=== PATIENT | male | born 1955 | race Caucasian/White ===

== ENCOUNTER 2018-07-07 17:01 | Observation (INO) | payer MEDICARE, OTHER ==
[~2018-07-07] VITALS: Ht 167.6 cm; Wt 55.7 kg
[~2018-07-07 17:01] MED LIST: ATOR; ATOR40TA78 PO; ATORVASTATIN; CARV; CARV12.5 PO; CARVEDILOL; CLOP75TA PO; CLOPIDOGREL; FLUO40CA2 PO; GLIM2TAB2 PO; HYDR25CA PO; LISI-170 PO; LISINOPRIL; METF850T10 PO; METFORM; OLAN5TAB7 PO; OLANZAPINE; PROZAC; [UNRECOGNIZED DRUG - OTHER]
[2018-07-07] MEDS ORDERED: GLUCAGON 1 MG IM PRN (17:30)
[2018-07-07] MEDS ORDERED: ONDANSETRON ODT 4 MG PO PRN (17:30)
[2018-07-07] MEDS ORDERED: DEXTROSE 50%, 50ML SYRINGE IVPush PRN (17:30)
[2018-07-07] MEDS ORDERED: DEXTROSE 4 GM TAB.CHEW PO PRN (17:30)
[2018-07-07] MEDS ORDERED: ONDANSETRON 2MG/ML, 2ML IVPush PRN (17:30)
[2018-07-07] MEDS ORDERED: LABETALOL 5MG/ML, 20ML IVPush PRN (17:30)
[2018-07-07] MEDS ORDERED: DAPTOMYCIN 425 MG in SODIUM CHLORIDE 0.9% 100 ML IVPB SCH (18:00)
[2018-07-07] MEDS ORDERED: HYDROXYZINE PAMOATE 25MG CAP PO PRN (18:00)
[2018-07-07 18:44] VITALS: BP 112/56
[2018-07-07] MEDS ORDERED: DAPTOMYCIN 320 MG in SODIUM CHLORIDE 0.9% 100 ML IVPB SCH (20:00)
[2018-07-07] MEDS: ENOXAPARIN 40 MG/0.4 ML SQ SCH (20:15)
[2018-07-07] MEDS: SODIUM CHLORIDE FLUSH 10ML SYR IVF SCH (20:16)
[2018-07-07] MEDS ORDERED: INSULIN GLARGINE 100 UNITS/ML, PEN SQ-INSULIN SCH (21:00)
[2018-07-07 22:23] LABS: BASOPHILS # (AUTO) 0.12 x10^3/uL (0-0.1); BASOPHILS % (AUTO) 2 % (0-1); EOSINOPHILS # (AUTO) 0.21 x10^3/uL (0-0.4); EOSINOPHILS % (AUTO) 3 % (1-7); LYMPHOCYTES # (AUTO) 1.95 x10^3/uL (1-3.4); LYMPHOCYTES % (AUTO) 23 % (22-44); MD NO; MEAN CORPUSCULAR HEMOGLOBIN 31.1 pg (27.5-34.5); MEAN CORPUSCULAR HGB CONC 34.2 g/dL (33.2-36.2); MEAN CORPUSCULAR VOLUME 90.9 fL (81-97); MEAN PLATELET VOLUME 7.9 fL (7.4-10.4); MONOCYTES # (AUTO) 0.71 x10^3/uL (0.2-0.8); MONOCYTES % (AUTO) 8 % (2-9); NEUTROPHILS # (AUTO) 5.51 x10^3/uL (1.8-6.8); NEUTROPHILS % (AUTO) 65 % (42-75); PLATELET COUNT 428 x10^3/uL (130-400); RED BLOOD COUNT 3.03 x10^6/uL (4.38-5.82); RED CELL DISTRIBUTION WIDTH 16.2 % (9.4-14.8)
[2018-07-07 22:35] LABS: ALANINE AMINOTRANSFERASE 20 U/L (12-78); ALBUMIN 2.7 g/dL (3.4-5.0); ANION GAP 8 mmol/L (5-15); CALCIUM 8.6 mg/dL (8.5-10.1); CHLORIDE 104 mmol/L (98-107); CREATININE 1.35 mg/dL (0.7-1.3)
[2018-07-07] MEDS: INSULIN LISPRO 100 UNITS/ML, PEN SQ-INSULIN SCH (22:35)
[2018-07-07 22:38] LABS: ALKALINE PHOSPHATASE 85 U/L (45-117); FREE T4 (FREE THYROXINE) 0.62 ng/dL (0.76-1.46); TOTAL PROTEIN 7.3 g/dL (6.4-8.2)
[2018-07-07 22:39] LABS: BILIRUBIN,TOTAL < 0.1 mg/dL (0.2-1.0)
[2018-07-07 23:14] LABS: AMPHETAMINE SCREEN, URINE Negative (Negative); BARBITURATE SCREEN, URINE Negative (Negative); BENZODIAZEPINE SCREEN, URINE Negative (Negative); CANNABINOID SCREEN, URINE Negative (Negative); OPIATE SCREEN, URINE Negative (Negative)
[2018-07-07 23:15] LABS: COCAINE SCREEN, URINE Negative (Negative); METHADONE SCREEN, URINE Negative (Negative)
[2018-07-08 01:11] VITALS: BP 102/54
[2018-07-08 05:21] LABS: ALKALINE PHOSPHATASE 74 U/L (45-117); BILIRUBIN,TOTAL 0.2 mg/dL (0.2-1.0); TOTAL PROTEIN 7.2 g/dL (6.4-8.2)
[2018-07-08 05:36] LABS: ALANINE AMINOTRANSFERASE 19 U/L (12-78); ALBUMIN 2.9 g/dL (3.4-5.0); ANION GAP 10 mmol/L (5-15); CALCIUM 8.6 mg/dL (8.5-10.1); CHLORIDE 107 mmol/L (98-107); CREATININE 1.11 mg/dL (0.7-1.3)
[2018-07-08] MEDS: CARVEDILOL 12.5 MG TABLET PO SCH ×2 (05:52→18:00)
[2018-07-08 06:20] LABS: BASOPHILS # (AUTO) 0.09 x10^3/uL (0-0.1); BASOPHILS % (AUTO) 1 % (0-1); EOSINOPHILS % (AUTO) 3 % (1-7); LYMPHOCYTES # (AUTO) 1.71 x10^3/uL (1-3.4); LYMPHOCYTES % (AUTO) 25 % (22-44); MD NO; MEAN CORPUSCULAR HEMOGLOBIN 30.1 pg (27.5-34.5); MEAN CORPUSCULAR VOLUME 91.2 fL (81-97); MEAN PLATELET VOLUME 8.2 fL (7.4-10.4); MONOCYTES # (AUTO) 0.56 x10^3/uL (0.2-0.8); MONOCYTES % (AUTO) 8 % (2-9); NEUTROPHILS # (AUTO) 4.33 x10^3/uL (1.8-6.8); NEUTROPHILS % (AUTO) 63 % (42-75); PLATELET COUNT 460 x10^3/uL (130-400); RED CELL DISTRIBUTION WIDTH 15.9 % (9.4-14.8)
[2018-07-08] MEDS: INSULIN LISPRO 100 UNITS/ML, PEN SQ-INSULIN SCH ×4 (07:00→21:00)
[2018-07-08] MEDS ORDERED: MAGNESIUM SULFATE PMX 2GM/50ML 50 ML IV ONE (07:30)
[2018-07-08 08:54] VITALS: BP 103/59
[2018-07-08] MEDS ORDERED: INSULIN GLARGINE 100 UNITS/ML, PEN SQ-INSULIN SCH (09:00)
[2018-07-08] MEDS: SENNA/DOCUSATE TABLET PO SCH (09:00)
[2018-07-08] MEDS: FLUOXETINE HCL 20 MG CAPSULE PO SCH (10:30)
[2018-07-08] MEDS: ATORVASTATIN 40 MG TABLET PO SCH (10:30)
[2018-07-08] MEDS: CLOPIDOGREL 75 MG TABLET PO SCH (10:31)
[2018-07-08] MEDS: SODIUM CHLORIDE FLUSH 10ML SYR IVF SCH ×2 (10:39→22:12)
[2018-07-08] MEDS: metFORMIN 850 MG TABLET PO SCH ×2 (10:51→17:00)
[2018-07-08] MEDS: LISINOPRIL 20 MG TABLET PO SCH (10:52)
[2018-07-08 12:21] LABS: HEMOGLOBIN A1C 12.7 % (4.2-6.3)
[2018-07-08 15:23] VITALS: BP 112/60
[2018-07-08 18:34] VITALS: BP 87/44
[2018-07-08] MEDS: ENOXAPARIN 40 MG/0.4 ML SQ SCH (20:54)
[2018-07-08] MEDS ORDERED: DAPTOMYCIN 320 MG in SODIUM CHLORIDE 0.9% 100 ML IVPB SCH (23:00)
[2018-07-09 02:12] VITALS: BP 105/55
[2018-07-09 05:03] LABS: HCT (SEDRATE) 27.7 % (39.2-51.8)
[2018-07-09 05:09] LABS: BASOPHILS # (AUTO) 0.11 x10^3/uL (0-0.1); BASOPHILS % (AUTO) 2 % (0-1); EOSINOPHILS # (AUTO) 0.23 x10^3/uL (0-0.4); EOSINOPHILS % (AUTO) 4 % (1-7); LYMPHOCYTES # (AUTO) 1.69 x10^3/uL (1-3.4); LYMPHOCYTES % (AUTO) 29 % (22-44); MD NO; MEAN CORPUSCULAR HEMOGLOBIN 31.6 pg (27.5-34.5); MEAN CORPUSCULAR HGB CONC 34.5 g/dL (33.2-36.2); MEAN CORPUSCULAR VOLUME 91.7 fL (81-97); MONOCYTES % (AUTO) 10 % (2-9); NEUTROPHILS # (AUTO) 3.25 x10^3/uL (1.8-6.8); NEUTROPHILS % (AUTO) 55 % (42-75); PLATELET COUNT 404 x10^3/uL (130-400); RED BLOOD COUNT 3.04 x10^6/uL (4.38-5.82); RED CELL DISTRIBUTION WIDTH 16.1 % (9.4-14.8)
[2018-07-09 05:11] LABS: ALANINE AMINOTRANSFERASE 18 U/L (12-78); ALBUMIN 2.5 g/dL (3.4-5.0); ANION GAP 7 mmol/L (5-15); CALCIUM 8.8 mg/dL (8.5-10.1); CHLORIDE 107 mmol/L (98-107); CREATININE 1.27 mg/dL (0.7-1.3)
[2018-07-09 05:18] LABS: ALKALINE PHOSPHATASE 76 U/L (45-117); BILIRUBIN,TOTAL 0.2 mg/dL (0.2-1.0); CREATINE KINASE, TOTAL 45 U/L (39-308); TOTAL PROTEIN 6.7 g/dL (6.4-8.2)
[2018-07-09] MEDS: CARVEDILOL 12.5 MG TABLET PO SCH ×2 (06:00→18:00)
[2018-07-09 06:55] VITALS: BP 83/40
[2018-07-09] MEDS: INSULIN LISPRO 100 UNITS/ML, PEN SQ-INSULIN SCH ×4 (07:00→21:21)
[2018-07-09] MEDS: metFORMIN 850 MG TABLET PO SCH ×2 (07:57→17:01)
[2018-07-09] MEDS: SENNA/DOCUSATE TABLET PO SCH (09:00)
[2018-07-09] MEDS: LISINOPRIL 20 MG TABLET PO SCH (09:00)
[2018-07-09] MEDS: FLUOXETINE HCL 20 MG CAPSULE PO SCH (09:18)
[2018-07-09] MEDS: CLOPIDOGREL 75 MG TABLET PO SCH (09:19)
[2018-07-09] MEDS: SODIUM CHLORIDE FLUSH 10ML SYR IVF SCH ×2 (09:19→20:58)
[2018-07-09] MEDS: ATORVASTATIN 40 MG TABLET PO SCH (09:19)
[2018-07-09 09:20] VITALS: BP 107/47
[2018-07-09 13:15] VITALS: BP 103/50
[2018-07-09 18:21] VITALS: BP 107/50
[2018-07-09 20:27] VITALS: BP 113/58
[2018-07-09] MEDS: ENOXAPARIN 40 MG/0.4 ML SQ SCH (21:01)
[2018-07-09] MEDS ORDERED: DAPTOMYCIN 350 MG in SODIUM CHLORIDE 0.9% 100 ML IVPB SCH (23:00)
[2018-07-10 01:19] VITALS: BP 120/62
[2018-07-10 05:43] LABS: BASOPHILS # (AUTO) 0.09 x10^3/uL (0-0.1); BASOPHILS % (AUTO) 1 % (0-1); EOSINOPHILS % (AUTO) 5 % (1-7); LYMPHOCYTES # (AUTO) 1.84 x10^3/uL (1-3.4); LYMPHOCYTES % (AUTO) 29 % (22-44); MD NO; MEAN CORPUSCULAR HEMOGLOBIN 31.2 pg (27.5-34.5); MEAN CORPUSCULAR HGB CONC 34.1 g/dL (33.2-36.2); MEAN CORPUSCULAR VOLUME 91.4 fL (81-97); MEAN PLATELET VOLUME 8.1 fL (7.4-10.4); MONOCYTES # (AUTO) 0.62 x10^3/uL (0.2-0.8); MONOCYTES % (AUTO) 10 % (2-9); NEUTROPHILS # (AUTO) 3.42 x10^3/uL (1.8-6.8); NEUTROPHILS % (AUTO) 55 % (42-75); PLATELET COUNT 423 x10^3/uL (130-400); RED BLOOD COUNT 3.26 x10^6/uL (4.38-5.82); RED CELL DISTRIBUTION WIDTH 15.9 % (9.4-14.8)
[2018-07-10 05:50] LABS: ALBUMIN 2.8 g/dL (3.4-5.0); CALCIUM 8.7 mg/dL (8.5-10.1); CHLORIDE 110 mmol/L (98-107)
[2018-07-10 05:54] LABS: ANION GAP 8 mmol/L (5-15); CREATININE 1.12 mg/dL (0.7-1.3)
[2018-07-10 06:21] VITALS: BP 99/58
[2018-07-10] MEDS: CARVEDILOL 12.5 MG TABLET PO SCH ×3 (06:22→17:39)
[2018-07-10] MEDS: FLUOXETINE HCL 20 MG CAPSULE PO SCH (07:48)
[2018-07-10] MEDS: CLOPIDOGREL 75 MG TABLET PO SCH (07:48)
[2018-07-10] MEDS: SENNA/DOCUSATE TABLET PO SCH (07:48)
[2018-07-10] MEDS: ATORVASTATIN 40 MG TABLET PO SCH (07:48)
[2018-07-10] MEDS: INSULIN LISPRO 100 UNITS/ML, PEN SQ-INSULIN SCH ×3 (07:50→16:00)
[2018-07-10 07:52] VITALS: BP 115/58
[2018-07-10] MEDS: metFORMIN 850 MG TABLET PO SCH ×2 (07:53→17:34)
[2018-07-10] MEDS: SODIUM CHLORIDE FLUSH 10ML SYR IVF SCH (07:54)
[2018-07-10] MEDS ORDERED: AMLODIPINE 5 MG TABLET PO SCH (09:00)
[2018-07-10] MEDS ORDERED: SODIUM CHLORIDE 0.45%, 1,000ML IVBOLUS SCH (11:00)
[2018-07-10] MEDS ORDERED: SODIUM POLYSTYRENE SULFONATE ORAL SUSP PO ONE (12:00)
[2018-07-10] MEDS ORDERED: INSU100V8 SQ (12:32)
[2018-07-10] MEDS ORDERED: DIPH,PERTUSS(ACELL),TET VAC/PF NC IM-VACC ONE (13:00)
[2018-07-10] MEDS ORDERED: PNEUMOC 13-VALENT VACC, 0.5 ML IM-VACC ONE (13:00)
[2018-07-10 14:00] VITALS: BP 119/62
[2018-07-10 15:21] LABS: ANION GAP 9 mmol/L (5-15); CHLORIDE 108 mmol/L (98-107); CREATININE 1.06 mg/dL (0.7-1.3)
[2018-07-10 17:35] VITALS: BP 129/59
== END 2018-07-10 18:00 | disposition home or self-care (01) ==
LOC: ED 17:28 → EDIP 17:30 → INTOOBSV 17:30 → 4NOR 18:09
PROVIDERS: ADMIT Hospitalist; ATTEND Hospitalist
DX: L02.811 Cutaneous abscess of head [any part, except face] (principal); R78.81 Bacteremia; E11.65 Type 2 diabetes mellitus with hyperglycemia; D64.9 Anemia, unspecified; I25.10 Atherosclerotic heart disease of native coronary artery without angina pectoris; E43 Unspecified severe protein-calorie malnutrition; N17.9 Acute kidney failure, unspecified; L02.415 Cutaneous abscess of right lower limb; B95.62 Methicillin resistant Staphylococcus aureus infection as the cause of diseases classified elsewhere; I10 Essential (primary) hypertension; E87.6 Hypokalemia; Z16.30 Resistance to unspecified antimicrobial drugs; F43.10 Post-traumatic stress disorder, unspecified; Z95.5 Presence of coronary angioplasty implant and graft; Z79.4 Long term (current) use of insulin
CPT/HCPCS: 36415; 80048; 80053; 80307; 82040; 82550; 82962; 83036; 83735; 84100; 84439; 84443; 85025; 85651; 86140; 90471; 90472; 90715; 96365; 96366; 96367; 96372; 99284; G0378; J0878; J1650; J3475; 99285; G0009

== ENCOUNTER → 2018-07-16 | Outpatient (CLI) | payer OTHER ==
[~2018-07-16] MED LIST changes: +INSU100V8 SQ
== END | disposition home or self-care (01) ==
LOC: WOUND 10:12
PROVIDERS: ATTEND Internal Medicine
DX: E11.622 Type 2 diabetes mellitus with other skin ulcer (principal); L98.491 Non-pressure chronic ulcer of skin of other sites limited to breakdown of skin; F63.3 Trichotillomania; B95.62 Methicillin resistant Staphylococcus aureus infection as the cause of diseases classified elsewhere; E11.65 Type 2 diabetes mellitus with hyperglycemia; I10 Essential (primary) hypertension; F17.210 Nicotine dependence, cigarettes, uncomplicated; F32.9 Major depressive disorder, single episode, unspecified; F41.9 Anxiety disorder, unspecified; E78.5 Hyperlipidemia, unspecified; I25.10 Atherosclerotic heart disease of native coronary artery without angina pectoris; Z79.4 Long term (current) use of insulin; Z86.73 Personal history of transient ischemic attack (TIA), and cerebral infarction without residual deficits
CPT/HCPCS: 97597; 97598; 99215

== ENCOUNTER → 2018-07-23 | Outpatient (CLI) | payer OTHER | END | disposition home or self-care (01) | LOC: WOUND 10:08 | PROVIDERS: ATTEND Internal Medicine | DX: E11.622 Type 2 diabetes mellitus with other skin ulcer (principal); L98.491 Non-pressure chronic ulcer of skin of other sites limited to breakdown of skin; E11.65 Type 2 diabetes mellitus with hyperglycemia; F63.3 Trichotillomania; I10 Essential (primary) hypertension; F41.9 Anxiety disorder, unspecified; E78.5 Hyperlipidemia, unspecified; F32.9 Major depressive disorder, single episode, unspecified; F17.210 Nicotine dependence, cigarettes, uncomplicated; B95.62 Methicillin resistant Staphylococcus aureus infection as the cause of diseases classified elsewhere; I25.10 Atherosclerotic heart disease of native coronary artery without angina pectoris; Z79.4 Long term (current) use of insulin; Z86.73 Personal history of transient ischemic attack (TIA), and cerebral infarction without residual deficits | CPT/HCPCS: 97597; 97598 ==